=== PATIENT | female | born 2000 | race Caucasian/White ===

== ENCOUNTER 2021-06-16 09:43 | Inpatient (IN) | payer OTHER ==
[2021-06-16] VITALS (9 sets, daily range): BP systolic 103–122; BP diastolic 57–70
[~2021-06-16] VITALS: Ht 162.6 cm; Wt 112.5 kg
[2021-06-16] MEDS ORDERED: OXYTOCIN DRIP 30 UNITS in IV 1 EA IV PRN (10:05)
[2021-06-16] MEDS ORDERED: LIDOCAINE 1% MDV 20ML VIAL INFIL PRN (10:05)
[2021-06-16] MEDS ORDERED: CALC500C15 PO (10:05)
[2021-06-16] MEDS ORDERED: PRENTAB9 PO (10:05)
[2021-06-16] MEDS ORDERED: miSOPROStol 50MCG 1/2 TABLET PO ONE (10:05)
--- NOTE | 2021-06-16 10:21 | HPEPDOC ---
Obstetrical History & Physical General Date of Admission Jun 16, 2021 at 09:43 History of Present Illness 19yo nanci [id number] @40+4 presenting from clinic for direct admission for PROM at term. 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: No pertinent history Past Medical History Medical History obesity, migraines with aura, asthma, allergies Surgical History: Tonsilectomy, [place] teeth, Other (bariatric surgery and tubes in ears) Family History Significant Family History: Heart disease (MGF), Hypertension (father) Social History Marital Status: Family situation: Spouse/partner home Psychosocial History: No pertinent psych hx * Smoker: non-smoker Alcohol: Denies Drugs: denies Abuse Violence Screening Have you been hit/kicked/slapp: No Have you been sexually assault: No Imunizations Tdap status: current Influenza Status: needs Allergies Coded Allergies: No Known Allergies (Unverified , 06/16/21) Medications Scheduled No.137/Iron/Folic Acd ( Vitamin Tablet) 1 Each Tablet, 1 TAB PO DAILY Miscellaneous Medications Calcium Carbonate (Antacid) 200 Mg Tab.chew, 500 MG PO Physical Examination Physical Examination GENERAL: Alert and oriented times three. BREAST: . ABDOMEN: Gravid and non-tender to touch. FETUS: Is vertex (VTX) by sterile vaginal examination (SVE), fetus is vertex (VTX) by Terry. HEART RATE: Regular rate and rhythm. LUNGS: Clear to auscultation (CTA). EXTREMITIES: No edema. No clonus. Deep tendon reflexes (DTRs) + . Laboratory Data 24H LABS Laboratory Tests 2 06/16/21 10:04: Serology Scanned Report Hepatitis B Testing Pertinent Laboratoy Data Blood Type: O+ RBC Antibody Screen: Negative HIV: Negative Hepatitis B: Negative Rapid Plasma Reagin: Nonreactive Rubella: Immune Varicella: Immune Chlamydia/Gonorrhea: Negative Group B Streptococcus: Negative Quad Screen Test: Negative Cystic Fibrosis: Negative Glucose Tolerance Test: 0 (fingersticks completed ) Anatomy Ultrasound Ultrasound Date: May 06, 2021 Placenta Location: Posterior Normal Anatomy: Yes Placenta Previa: No Vaginal Examination Dilation: 1cm (visibly on speculum exam) Cervical Position: Posterior Presentation: Cephalic presentation Position: Vertex (occiput) Assessment Heart Rate (FHR): 140 Variability: Moderate Decelerations: None Tocometer Contractions: Yes Frequency: irregular Strength: palpated as mild, resting tone palp/soft Multi-drug resistant Organism: No history of MDRO Assessment/Plan Assessment Jo is a 20-year-old (G)1 para (P)0 at 40+4 weeks by 9+0-week ultrasound. Presents to Labor and Delivery (L&D) for admission for PROM. Plan Admit and orient. Tax Manager and consent. Diet: reg. Group B Streptococcus (GBS) [negative]. Labs and intravenous (IV) per unit protocol. Counseled on Pitocin and induction of labor (IOL). Lactated Ringers (LR): Bolus 1000 mL, then at 125 mL/hr. Anticipate [normal spontaneous delivery ()]. C-S as appropriate. SERGEI RASHEED CNM Jun 16, 2021 10:21
[2021-06-16 10:46] LABS: HEMOGLOBIN 11.9 g/dl (12.0-15.5); MEAN CORPUSCULAR HEMOGLOBIN 28.7 pg (27.0-33.0); MEAN CORPUSCULAR VOLUME 84.3 fl (80.0-96.0); PLATELET COUNT, AUTOMATED 243 10^3/uL (150-450); RED BLOOD COUNT 4.15 10^6/uL (4.00-5.40); WHITE BLOOD COUNT 11.8 10^3/uL (4.0-10.0)
--- NOTE | 2021-06-16 11:29 | IPNPDOC ---
Obstetrical Progress Note Date of Service Jun 16, 2021 Subjective Pt resting comfortably with continued leaking of amniotic fluid. Assessment Heart Rate (FHR): 130 Variability: Moderate Accelerations: Positive Decelerations: None Heart Rate Tracing: Category I Tocometer Contractions: Yes Frequency: other (occasional) Duration: less than 60 seconds Strength: palpated as mild, resting tone palp/soft Sterile Vaginal Examination Dilation: 1cm Effacement (%): 50% Station: -3 Cervical Consistency: Soft Cervical Position: Posterior Postion/Presentation: Cephalic presentation Assessment and Plan Age: 20 : 1 Term: 0 Pre-term: 0 Abortions: 0 Livin EGA at Admission: 40 (+4) Status: Reassuring Group B Streptococcus: Negative Anticipate: Vaginal Delivery Additional Comments Saline lock IV, encourage oral hydration, may eat a light meal, cervical catheter placed and filled to 80/80 with exam, 50mcg sublingual cytotec x1, monitor efm x2, consider pitocin induction after cervical catheter is out, anticipate vaginal delivery SERGEI RASHEED CNM Jun 16, 2021 11:29
[2021-06-16] MEDS ORDERED: PROMETHAZINE INJ 25 MG/ML VIAL (J2550) IV ONE (13:50)
[2021-06-16] MEDS ORDERED: BUTORPHANOL 2 MG/ML INJ (J0595) IV ONE (13:50)
[2021-06-16] MEDS ORDERED: miSOPROStol 50MCG 1/2 TABLET SL ONE (14:40)
[2021-06-16] MEDS ORDERED: LR 1,000 ML IV SCH (18:10)
[2021-06-16] MEDS ORDERED: OXYTOCIN DRIP 30 UNITS in IV 1 EA IV SCH (18:10)
--- NOTE | 2021-06-16 18:25 | IPNPDOC ---
Obstetrical Progress Note Date of Service Jun 16, 2021 Subjective to room for assessment after marcus bulb came out. patient is comfortable and having dinner FHT: 140, Mod dave,=+accels, Decel--cat I tracing SVE: /-2 TOCO: 2-10/24 A/P latent labor.cat I tracing. s/p 2 doses of Cytotec 50mcg PO. Last dose at 1530. patient can get epidural then will start pit after that. if 4 hours since last dose of cytotec. Objective Vital Signs Date Time Temp Pulse Resp B/P (MAP) Pulse Ox O2 Delivery O2 Flow Rate FiO2 06/16/21 16:34 77 122/70 (87) 06/16/21 14:27 98.2 16 SAMUEL TITUS MD Jun 16, 2021 18:25
[2021-06-16] MEDS ORDERED: FENTANYL 2MCG/ML ROPIVACAINE 0.2% IN 0.9% NACL 100ML IVBAG As Ordered ONE (20:23)
[2021-06-16] MEDS ORDERED: ONDANSETRON 4MG/2ML VIAL IV PRN (21:50)
[2021-06-16] MEDS ORDERED: EPIDURAL/PCA KEYS XX PRN (21:50)
[2021-06-16] MEDS ORDERED: REFRIGERATOR IV KEYS XX PRN (21:50)
[2021-06-16] MEDS ORDERED: LACTATED RINGER'S 1000 ML IV PRN (21:50)
[2021-06-16] MEDS ORDERED: EPIDURAL COMMENT XX SCH (21:50)
[2021-06-16] MEDS: FENTANYL/ROPIVACAINE/NACL BAG 100 ML EPIDURAL SCH (21:50)
[2021-06-16] MEDS ORDERED: NALOXONE INJ 0.4MG/1ML VIAL (J2310 PER 1MG) IV PRN (21:50)
[2021-06-16] MEDS ORDERED: diphenhydrAMINE 50MG/ML VIAL (J1200) IV PRN (21:50)
[2021-06-17] VITALS (21 sets, daily range): BP systolic 85–125; BP diastolic 49–81
[2021-06-17] MEDS: ePHEDrine SULFATE 25 MG/5 ML(5MG/ML) SYRINGE IV PRN ×3 (01:46→08:19)
--- NOTE | 2021-06-17 05:52 | IPNPDOC ---
Obstetrical Progress Note Date of Service Jun 17, 2021 Subjective to room for assessment. patient is comfortable in bed with epidural in place fht: 140, mod dave,+accels, occasional variables and late decels--cat II tracing [place]: 4-5/10, pit 14 SVE: 7/75/-1, some caput felt. RN called patient 7cm at 3 am. A/P Active labor, cat II tracing. having trouble augmenting labor due to cat II tracing. will continue intrauterine resuscitation, will allow for 6hrs of inadequate contractions before dx of arrest of dilation. Objective Vital Signs Date Time Temp Pulse Resp B/P (MAP) Pulse Ox O2 Delivery O2 Flow Rate FiO2 06/16/21 18:24 71 116/64 (81) 06/16/21 17:49 97.3 16 SAMUEL TITUS MD Jun 17, 2021 05:52
--- NOTE | 2021-06-17 07:53 | IPNPDOC ---
Obstetrical Progress Note Date of Service Jun 17, 2021 Subjective Report received from Dr. Kulkarni, assumed care of patient at 0730. Patient comfortable with epidural, however still feeling pelvic pressure with contractions. Spouse at Bedside for support. Objective Vital Signs 0638: BP 107/59, HR 79 0708: BP 99/53, HR 72 0746: BP 86/51, HR 68, RR, 16, T 98.8 Assessment Heart Rate (FHR): 145 Variability: Moderate Accelerations: Present Tocometer Contractions: Yes Assessment and Plan Additional Comments Ms. Mai is a 20yo G 1 P 0 at 40+5 wks admitted yesterday with PROM, has been augmented with marcus bulb, cytotec, and now pitocin. O positive/GBS negative/RI/ VSS- however some periods of low BP due to epidural. Rate has recently been turned down. FHR difficult to determine if and in how relation to contractions decelerations are occurring. Difficult to trace contractions as well. IUPC and FSE placed at 0736. Initially, FSE with difficulty tracing FHR. SVE: 7/80 (swollen cervix)/-1 with 1-2cm of caput noted on head at 0730. Overnight, pt has made slow progress in cervical change. Currently on 14mu of pitocin. Continue to titrate to MVU of 180-270. Comfortable with Epidural. Anticipate , however Dr. Murdock updated on status of patient in event she has arrest of dilation. Plan reassessment in 2-3 hours. CATHERINE YUN CNM Jun 17, 2021 07:53
[2021-06-17] MEDS ORDERED: ePHEDrine SULFATE 25 MG/5 ML(5MG/ML) SYRINGE IV PRN (08:30)
[2021-06-17] MEDS: PRENATAL VITAMINS CHEWABLE TABLET PO SCH (09:00)
[2021-06-17] MEDS: FENTANYL/ROPIVACAINE/NACL BAG 100 ML EPIDURAL SCH (09:19)
--- NOTE | 2021-06-17 10:08 | IPNPDOC ---
Obstetrical Progress Note Date of Service Jun 17, 2021 Subjective Feeling much more pressure with contractions. Can feel contractions. Spouse at bedside. Check by RN showing Right lip cervix left. Objective Vital Signs 0925: BP 97/53, P 77, R 16, Temp 98.3 0948: BP 113/57, P 76 0954: Bp 115/53, P 75 Assessment Heart Rate (FHR): 155 Variability: Moderate Accelerations: Present Decelerations: Variable Heart Rate Tracing: Category II Tocometer Contractions: Yes Assessment and Plan Additional Comments Ms. Mai is a 20yo G 1 P 0 at 40+5 wks admitted yesterday with PROM, has been augmented with marcus bulb, cytotec, and now pitocin. O positive/GBS negative/RI/ VSS- continued to need ephedrine for low BP due to epidural. FHR cat 2 tracing with variables just starting with contractions. Adequate MVU. SVE: 10/100%/1 at 0945. Will start active pushing now, did offer passive decent to patient to which she declined. Dr. Murdock updated on status of patient and potential need for vacuum if variable continue without imminent delivery. Comfortable with Epidural. Anticipate CATHERINE LONDON CNM Jun 17, 2021 10:08
[2021-06-17 11:00] LABS: CORD GAS ABE A -6.8; CORD GAS HCO3 A 21.5 MEQ/L; CORD GAS O2 SAT A 32.8 %; CORD GAS PCO2 A 55.1 mmHg; CORD GAS PH A 7.21 UNITS; CORD GAS PO2 A 20.2 mmHg; CORD GAS SBC A 17.6 MEQ/L; CORD GAS TCO2 A 23.2 MEQ/L
[2021-06-17 11:04] LABS: CORD GAS ABE V -5.6; CORD GAS HCO3 V 19.6 MEQ/L; CORD GAS O2 SAT V 77.7 %; CORD GAS PCO2 V 37.8 mmHg; CORD GAS PH V 7.333 UNITS; CORD GAS PO2 V 37.1 mmHg; CORD GAS SBC V 19.4 MEQ/L; CORD GAS TCO2 V 20.8 MEQ/L
[2021-06-17] MEDS ORDERED: METHYLERGONOVINE MALEATE 0.2 MG/ML VIAL (J2210) IM ONE (11:10)
[2021-06-17] MEDS ORDERED: DIBUCAINE 1% OINTMENT 30GM TOP PRN (11:15)
[2021-06-17] MEDS ORDERED: METHYLERGONOVINE MALEATE 0.2 MG TAB PO PRN (11:15)
[2021-06-17] MEDS ORDERED: IBUPROFEN 600MG TAB PO PRN (11:15)
[2021-06-17] MEDS ORDERED: OXYTOCIN DRIP 30 UNITS in IV 1 EA IV SCH ×4 (11:15)
[2021-06-17] MEDS ORDERED: ACETAMINOPHEN TAB 650MG DOSE (2X325MG) PO PRN (11:15)
--- NOTE | 2021-06-17 11:25 | DNPDOC ---
[facility] Delivery Note Delivery Note Date of Delivery: 17 Jun 2021 @ 1041 hours Pre-Procedure Diagnosis: 1. 20 year old at 40+5 weeks gestation 2. Rh positive 3. Obesity with excessive weight gain 4. History Gastric Bypass 5. Augmentation for PROM 6. FSE and IUPC placement Post-Procedure Diagnosis: 1. Normal spontaneous vaginal delivery, term 2. Periurethral abrasions 3. Nuchal cord complicating delivery, with compression Procedure: Spontaneous vaginal delivery Delivery Provider: MAJ Isela Leslie CNM Anesthesia: Epidural Estimated Blood Loss: 350 ml Findings: Delivered viable infant female weighing 2860gm (6#5oz), Score 8/9. Complications: None Delivery Summary: Ms. Mai is a 20 year old 1 now para 1 who was admitted to labor and delivery for rupture of membrane at term. She progressed to C/C/+3 with augmentation with marcus bulb, cytotec, and pitocin titration. During pushing, fetus with deep variable with return to 160s-170s. Back up physician notified and available in room for vacuum if indicated, however patient with excellent pushing effort and able to deliver without need for operative assistance. Head delivered OA, with head restituting to LOT. Loose nuchal cord reduced over head. Left anterior shoulder, posterior shoulder, and corpus delivered easily with maternal pushing efforts. FSE removed intact. to radiate warmer after clamping cord x2 for further assessment by nursing staff. Terminal meconium vs mec staining noted. Section of cord obtained for cord gases, resulted elsewhere in chart. Cord blood obtained for typing due to maternal blood type. Placenta delivered with gentle cord traction, in [place] mechanism, appears complete and intact with 3VC. Minimal coiling or [place] jelly noted on cord. Noted uterine atony with continued oozing despite bimaunal massage. Fundus firmed after pitocin bolus, IM methergine and 1000mcg cytotec. Inspection revealed bilateral small periurethral abrasions with edge not approximated. Discussed option with patient to approximate with suture which she accepted. Both repaired with single figure eight stitch with good approximation under existing epidural anesthesia. Patient tolerated well. Sponge, needle, instrument count correct following d elivery. Vaginal sweep confirmed nothing foreign remaining in vagina. Patient and stable and bonding in skin to skin when I left. Desires to breast feed/pump and use progesterone only pills for control. I delivered the infant, completed the repair, and completed the documentation personally. -ORTIZ Germain ADINA M. CNM Jun 17, 2021 11:24
[2021-06-17] MEDS: DOCUSATE SODIUM 100MG CAPSULE PO PRN (14:36)
[2021-06-17] MEDS: IBUPROFEN 800 MG TAB PO PRN (14:36)
[2021-06-18] MEDS: IBUPROFEN 800 MG TAB PO PRN ×3 (02:02→18:22)
--- NOTE | 2021-06-18 05:27 | IPNPDOC ---
Progress Note Date of Service: Jun 18, 2021 Day#: 1 Progress Note SUBJECT: Jo Mai is a 20-year-old 1 now Para 1001 status post u ncomplicated spontaneous vaginal delivery at 40+5 weeks' at approximately 1041 hours on [id number] of a female 6 pounds 5 ounces (2860 grams) with post vaginal laceration and repair, doing well day # . She has been ambulating, voiding spontaneously without issue and tolerating regular diet. Breast feeding without issue. Reports lochia is [like a normal period]. Patient is ambulating well. [Reports some cramping with . Denies any pain. Voiding and stooling without difficulty]. Pre-Procedure Diagnosis: 1. 20 year old at 40+5 weeks gestation 2. Rh positive 3. Obesity with excessive weight gain 4. History Gastric Bypass 5. Augmentation for PROM 6. FSE and IUPC placement Post-Procedure Diagnosis: 1. Normal spontaneous vaginal delivery, term 2. Periurethral abrasions 3. Nuchal cord complicating delivery, with compression OBJECTIVE: VITAL SIGNS: Within normal limits, afebrile. Alert and oriented times three. nonlabored breathing Heart rate: Regular rate Abdomen: Fundus firm at U-2. Soft, NTTP. Negative calf tenderness bilaterally ASSESSMENT: As above doing well on day 1. Vitals within normal l imits, afebrile, hemodynamically stable with no evidence of infection. PLAN: 1. Discharge to home likely tomorrow 2. Tylenol and Motrin for pain. 3. Encourage breast feeding and ambulation. 4. Minipill for contraception 5. Routine PP visit in 6 weeks in clinic. 6. Discussed return precautions at length. VS, I&O, 24H, Vee Vital Signs/I&O Vital Signs Date Time Temp Pulse Resp B/P (MAP) Pulse Ox O2 Delivery O2 Flow Rate FiO2 06/17/21 18:09 97.2 90 18 124/81 (95) I&O- Last 24 Hours up to 6 AM 06/18/21 06:00 Intake Total 4201.7 ml Output Total 1100 ml Balance 3101.7 ml Laboratory Data 24H LABS Laboratory Tests 2 06/17/21 10:55: Cord Arterial Blood pH 7.210, Cord Arterial Blood PCO2 55.1, Cord Arterial Blood PO2 20.2, Cord Arterial Blood HCO3 21.5, Cord Arterial Blood Total CO2 23.2, Cord Arterial Blood Base Excess -6.8, Cord Arterial Base Excess (Standard 17.6, Cord Arterial Bld Oxygen Saturation 32.8, Cord Venous Blood pH 7.333, Cord Venous Blood PCO2 37.8, Cord Venous Blood PO2 37.1, Cord Venous Blood HCO3 19.6, Cord Venous Blood Total CO2 20.8, Cord Venous Base Excess (Actual) -5.6, Cord Venous Base Excess (Standard) 19.4, Cord Venous Blood Oxygen Saturation 77.7 RAMYA DEVLIN. DO Jun 18, 2021 05:23
[2021-06-18 06:21] VITALS: BP 107/54
[2021-06-18] MEDS: PRENATAL VITAMINS CHEWABLE TABLET PO SCH (07:46)
[2021-06-18] MEDS: ACETAMINOPHEN 500 MG TAB PO PRN ×3 (09:00→22:33)
--- NOTE | 2021-06-18 10:11 | IPNPDOC ---
Progress Note Date of Service: Jun 18, 2021 Day#: 1 Progress Note SUBJECT: Jo is a 20-year-old 1 now Para 1 status post uncomplicated s pontaneous vaginal delivery on [id number] of a female infant. She has been ambulating, voiding spontaneously without issue and tolerating regular diet until c/o of a sudden change in comfort with abdominal pain in the last hour. States she has been passing gas this morning, denies fever, chills or other body aches. Breast feeding with infant displaying signs that she is not satisfied. Reports lochia is normal. Patient is in a hands and knees position in bed, rocking for comfort. OBJECTIVE: VITAL SIGNS: Within normal limits, afebrile. Alert and oriented times three. Abdomen: Fundus firm at U-2. Soft, TTP. Small lochia. ASSESSMENT: PLAN: 1. Single dose of oxycodone ordered for pain 2. Tylenol and Motrin for pain. 3. Encourage breast feeding and ambulation. 4. Warm compress for comfort. 5. Simethicone ordered PRN gas pain. 6. Discussed reasons to call at length. VS, I&O, 24H, [facility] Vital Signs/I&O Vital Signs Date Time Temp Pulse Resp B/P (MAP) Pulse Ox O2 Delivery O2 Flow Rate FiO2 06/18/21 06:21 98.6 57 18 107/54 (71) I&O- Last 24 Hours up to 6 AM 06/18/21 05:59 Intake Total 4201.7 ml Output Total 1100 ml Balance 3101.7 ml Laboratory Data 24H LABS Laboratory Tests 2 06/17/21 10:55: Cord Arterial Blood pH 7.210, Cord Arterial Blood PCO2 55.1, Cord Arterial Blood PO2 20.2, Cord Arterial Blood HCO3 21.5, Cord Arterial Blood Total CO2 23.2, Cord Arterial Blood Base Excess -6.8, Cord Arterial Base Excess (Standard 17.6, Cord Arterial Bld Oxygen Saturation 32.8, Cord Venous Blood pH 7.333, Cord Venous Blood PCO2 37.8, Cord Venous Blood PO2 37.1, Cord Venous Blood HCO3 19.6, Cord Venous Blood Total CO2 20.8, Cord Venous Base Excess (Actual) -5.6, Cord Venous Base Excess (Standard) 19.4, Cord Venous Blood Oxygen Saturation 77.7 SERGEI RASHEED [facility] Jun 18, 2021 10:11
[2021-06-18] MEDS ORDERED: SIMETHICONE 80MG CHEW TAB PO PRN (10:15)
[2021-06-18] MEDS ORDERED: oxyCODONE 5MG TAB PO ONE (10:15)
[2021-06-18] MEDS: DOCUSATE SODIUM 100MG CAPSULE PO PRN (15:24)
[2021-06-18 18:00] VITALS: BP 132/68
[2021-06-19] MEDS: IBUPROFEN 800 MG TAB PO PRN ×2 (02:40→11:30)
[2021-06-19] MEDS: ACETAMINOPHEN 500 MG TAB PO PRN ×2 (05:10→11:30)
[2021-06-19 06:00] VITALS: BP 116/57
[2021-06-19] MEDS ORDERED: INFLUENZA QUADRIVALENT PF VACCINE 0.5ML SYRINGE IM ONE (09:00)
--- NOTE | 2021-06-19 10:36 | IPNPDOC ---
Progress Note Date of Service: Jun 19, 2021 Day#: 2 Progress Note Ms. Mai is a 19yo who had an on Jul 06 at 40+5wks gestation of i nfant female. Small bilateral periurethral lacerations were repaired following delivery. S: States she is doing well. Reports pain well controlled, however having some right low abdominal tenderness. Reports discomfort at urethral site after urination. She is ambulating well, tolerating a regular diet, urinating without difficulty, reports normal bowel activities and has no breast or leg pain. States is difficult with infant not latching, is supplementing with formula. Plans to pump at home. Lochia is diminishing. Reports moods are stable, denies history of depression. Ambulating well, denies dizziness, light headedness. O: VS: Vital Signs Label Value Date Time Patient Temperature 97.9 degrees F 06/19/21 0600 Temperature Source Temporal 06/19/21 0600 Pulse 65 06/19/21 0600 Respiratory Rate 20 bpm 06/19/21 0600 Blood Pressure Assessment 116/57 (76) 06/19/21 0600 Source Automatic Cuff (NIBP) Bedside Pulse Oximetry 99 % 06/19/21 0600 General: Alert. Well-appearing, in no acute distress. Tired with appropriate responses. PSYCH: Well groomed. Appropriate affect, normal mood. Conversed easily. Neuro: Oriented to time, place, and person. RESP: Lungs clear to auscultation bilaterally without wheezes, rales or rhonchi. Unlabored breathing. CV: Normal RRR, no murmur, c/w normal . No edema to bilateral upper and lower extremities. Negative calf tenderness. Breast: Soft, filling. No erythema or tenderness. Intact nipples. ABD: Soft, non-tender to all areas. BS normal x4 quad. Fundus: Firm U-2, Fundus non-tender. Lochia: small Perineum: well approximated with minimal edema MSK: legs without calf tenderness or edema bilaterally SKIN: Dry, intact. A/P 20yo G 1 P 1 day 2 s/p at 40+5 wks gestation O positive/GBS negative/RI/ Normal progression, laceration healing well. with difficulties and supplementing. Plans to pump at home and has pump. VSS Plans POP for control after discharge. Discharge today when infant ready, to follow up in [facility] clinic in 6-8wks for PP visit. Discharge teaching completed with patient, see discharge summary. Discharge medications previously picked up from pharmacy. No new discharge medications ordered. Profile to be placed by clinic provider. VS, I&O, 24H, Fishbone Vital Signs/I&O Vital Signs Date Time Temp Pulse Resp B/P (MAP) Pulse Ox O2 Delivery O2 Flow Rate FiO2 06/19/21 06:00 97.9 65 20 116/57 (76) 99 Room Air CATHERINE YUN CNM Jun 19, 2021 10:36
--- NOTE | 2021-06-19 10:41 | DS.PDOC ---
Discharge Summary General Date of Admission Jun 16, 2021 at 09:43 Date of Discharge Jun 19, 2021 Discharge Summary Date of Admission: 06/16/21 Admission Diagnosis: PROM at Full Term Delivery Date: 06/17/21 Discharge Diagnosis: -Normal spontaneous vaginal delivery, term -Periurethral abrasions -Nuchal cord complicating delivery, with compression -Meconium during delivery Procedures: -Augmentation -External Monitoring -Epidural -IUPC/FSE -Vaginal Delivery -Repair of Laceration Condition on Discharge: Stable Discharged to: Home Hospital Course: Ms. Mai is a 20 year old G1 now P1 who delivered a viable infant female at 40+5 weeks gestation via spontaneous vaginal delivery after arriving to unit with PROM. Two small bilateral periurethral lacerations were repaired following delivery. Ms. Mai has had an uncomplicated course. She has remained afebrile and normotensive with diminishing lochia throughout her stay. She is ambulating well, tolerating a regular diet, urinating without difficulty, reports normal bowel activities and has no breast or leg pain. She denies headache, vision changes, RUQ pain, or nausea/vomiting. She is stable and ready for discharge. Day of discharge physical exam documented in progress note. feeding at discharge is breastmilk and formula. Planned control is POP. To follow up in the [facility] clinic in 6-8 weeks. Discharge management time Spent: <30 minutes I saw and evaluated the patient, and completed the documentation personally. -MAJ Isela Yun CNM Vital Signs/I&Os Vital Signs Date Time Temp Pulse Resp B/P (MAP) Pulse Ox O2 Delivery O2 Flow Rate FiO2 06/19/21 06:00 97.9 65 20 116/57 (76) 99 Room Air Discharge Medications Scheduled No.137/Iron/Folic Acd ( Vitamin Tablet) 1 Each Tablet, 1 TAB PO DAILY, (Reported) Miscellaneous Medications Calcium Carbonate (Antacid) 200 Mg Tab.chew, 500 MG PO, (Reported) Allergies Coded Allergies: No Known Allergies (Unverified , 06/16/21) ISELA YUN CNM Jun 19, 2021 10:41
== END 2021-06-19 13:10 | disposition home or self-care (01) | DRG 807 ==
LOC: M LDI 09:43 → M OBS 06-17 12:53
PROVIDERS: ADMIT Registered Nurse; ATTEND Advanced Practice Midwife
PROC: 3E0P7GC Introduction of Other Therapeutic Substance into Female Reproductive, Via Natural or Artificial Opening (ICD-10-PCS; 2021-06-16)
PROC: 10E0XZZ Delivery of Products of Conception, External Approach (ICD-10-PCS; principal; 2021-06-17)
PROC: 0HQ9XZZ Repair Perineum Skin, External Approach (ICD-10-PCS; 2021-06-17)
DX: O42.12 Full-term premature rupture of membranes, onset of labor more than 24 hours following rupture (principal); Z37.0 Single live birth; Z3A.40 40 weeks gestation of pregnancy; O48.0 Post-term pregnancy; O99.214 Obesity complicating childbirth; E66.9 Obesity, unspecified; O99.844 Bariatric surgery status complicating childbirth; O76 Abnormality in fetal heart rate and rhythm complicating labor and delivery; O69.1XX0 Labor and delivery complicated by cord around neck, with compression, not applicable or unspecified; O62.2 Other uterine inertia; O77.0 Labor and delivery complicated by meconium in amniotic fluid; O70.0 First degree perineal laceration during delivery